=== PATIENT | male | born 1980 ===

== ENCOUNTER → 2018-09-01 18:19 | Outpatient (REF) | payer OTHER, SELFPAY | LOC: LAB 18:19 | PROVIDERS: Visit Provider Family Medicine Adult Medicine | DX: Z00.00 Encounter for general adult medical examination without abnormal findings (principal) ==

== ENCOUNTER → 2018-09-01 18:28 | Outpatient (REF) | payer OTHER, SELFPAY ==
[2018-09-05 13:45] LABS: QuantiFERON TB NEGATIVE (Negative)
[2018-09-06 13:39] LABS: Rapid Plasma Reagin NON-REACTIVE
== END ==
LOC: LAB 18:28
PROVIDERS: Visit Provider Family Medicine Adult Medicine
DX: Z00.00 Encounter for general adult medical examination without abnormal findings (principal)
CPT/HCPCS: 86480; 86592; 87591